=== PATIENT | male | born 1965 | race Caucasian/White ===

== ENCOUNTER 2019-11-22 03:18 | Emergency (ER) | payer MEDICAID, OTHER ==
[~2019-11-22] VITALS: Ht 182.9 cm; Wt 77.3 kg
[2019-11-22] MEDS ORDERED: loperamide 2mg capsule PO ONE (03:30)
[2019-11-22] MEDS ORDERED: ondansetron/PF 4mg/2ml inj IV ONE (03:30)
[2019-11-22] MEDS ORDERED: normal saline 1000ML IV soln IVB ONE (03:30)
[2019-11-22] MEDS ORDERED: LORazepam 2 mg/ml vial IV ONE (03:35)
[2019-11-22 04:11] LABS: BASOPHILS # (AUTO) 0.1 X10'3 (0-0.2); BASOPHILS % (AUTO) 0.5 % (0-1); EOSINOPHILS % (AUTO) 0.1 % (0-6); HEMATOCRIT 43.8 % (42.0-52.0); HEMOGLOBIN 14.4 g/dl (14.0-17.9); LYMPHOCYTES # (AUTO) 1.3 X10'3 (1.1-4.8); LYMPHOCYTES % (AUTO) 7.7 % (21-51); MEAN CORPUSCULAR HEMOGLOBIN 29.8 PG (27.0-31.0); MEAN CORPUSCULAR HGB CONC 32.8 g/dL (33.0-36.5); MEAN CORPUSCULAR VOLUME 90.8 FL (78-98); MEAN PLATELET VOLUME 9.9 FL (7.4-10.4); MONOCYTES # (AUTO) 0.8 X10'3 (0-0.9); MONOCYTES % (AUTO) 4.8 % (2-12); NEUTROPHILS # (AUTO) 14.6 X10'3 (1.8-7.7); NEUTROPHILS % (AUTO) 86.9 % (42-75); PLATELET COUNT 242 X10'3 (140-440); RED BLOOD COUNT 4.82 X10'6 (4.70-6.10); RED CELL DISTRIBUTION WIDTH 13.8 % (11.5-14.5); WHITE BLOOD COUNT 16.8 X10'3 (4.5-11.0)
[2019-11-22 04:14] LABS: ALANINE AMINOTRANSFERASE 24 U/L (12-78); ALKALINE PHOSPHATASE 78 IU/L (46-116); ANION GAP 16 (8-16); ASPARTATE AMINO TRANSFERASE 22 U/L (10-37); BILIRUBIN,TOTAL 0.6 MG/DL (0.1-1.0); BLOOD UREA NITROGEN 14 MG/DL (7-18); BUN/CREATININE RATIO 8.7 (5.4-32.0); CALCIUM 9.1 MG/DL (8.5-10.1); CHLORIDE 102 MMOL/L (99-107); CREATININE 1.61 MG/DL (0.60-1.10); GLUCOSE 128 MG/DL (70-104); SODIUM 138 MMOL/L (135-145); TOTAL CARBON DIOXIDE 20.1 MMOL/L (24-32); TOTAL PROTEIN 7.9 G/DL (6.4-8.2); eGFR 45 ML/MIN
[2019-11-22 04:19] LABS: LIPASE 201 U/L (73-393); TROPONIN I < 0.04 NG/ML (0.0-0.05)
[2019-11-22] MEDS ORDERED: proCHLORperazine 10 MG/2 ml inj IV ONE (04:35)
[2019-11-22 04:51] LABS: CLARITY,URINE CLEAR (Clear); COLOR,URINE YELLOW (Yellow); GLUCOSE, URINE NEGATIVE (Neg); KETONES,URINE 15 mg/dl (Neg); LEUKOCYTE ESTERASE ,URINE NEGATIVE (Neg); NITRITES, URINE NEGATIVE (Neg); OCCULT BLOOD,URINE TRACE-INTACT (Neg); PH,URINE 6.5 (4.8-8.0); PROTEIN,URINE NEGATIVE (Neg); UROBILINOGEN,URINE 0.2 E.U/dL (0.2-1.0)
[2019-11-22 04:52] VITALS: BP 144/103
[2019-11-22] MEDS ORDERED: ONDA8TAB6 PO (04:57)
[2019-11-22 05:04] LABS: UA COLLECTION TYPE URINAL
[2019-11-22 05:11] LABS: BACTERIA,URINE NONE SEEN /HPF (Neg); RBC,URINE 0-2 /HPF (0-2); WBC,URINE 0-4 /HPF (0-4)
[2019-11-22 05:12] LABS: HYALINE CASTS 0-3 /LPF (NEGATIVE); MUCUS STRANDS NONE SEEN /LPF (Neg); SQUAMOUS EPITHELIAL CELL,UR NONE SEEN /LPF (FEW)
[2019-11-22] MEDS ORDERED: mag hydrox/Alum hydrox/simeth 30ml oral suspension PO ONE (05:25)
[2019-11-22] MEDS ORDERED: famotidine 20mg tablet PO ONE (05:25)
== END 2019-11-22 05:48 | disposition home or self-care (01) ==
LOC: ER 03:19
DX: K52.9 Noninfective gastroenteritis and colitis, unspecified (principal); R11.2 Nausea with vomiting, unspecified; R10.84 Generalized abdominal pain
CPT/HCPCS: 36415; 71045; 80053; 81001; 83690; 84484; 85025; 93005; 96361; 96374; 96375; 99285; J0780; J2060; J2405; J7030

== ENCOUNTER 2023-01-06 18:29 | Emergency (ER) | payer MEDICAID, OTHER ==
[~2023-01-06] VITALS: Ht 180.3 cm; Wt 84.1 kg
[~2023-01-06 18:29] MED LIST: ONDA8TAB6 PO
[2023-01-06 18:35] VITALS: BP 140/85
[2023-01-06 19:46] LABS: BASOPHILS # (AUTO) 0.1 X10'3 (0-0.2); BASOPHILS % (AUTO) 0.9 % (0-1); EOSINOPHILS # (AUTO) 0.5 X10'3 (0-0.9); EOSINOPHILS % (AUTO) 5.2 % (0-6); HEMATOCRIT 36.1 % (42.0-52.0); HEMOGLOBIN 11.6 g/dl (14.0-17.9); LYMPHOCYTES # (AUTO) 2.5 X10'3 (1.1-4.8); LYMPHOCYTES % (AUTO) 26.5 % (21-51); MEAN CORPUSCULAR HEMOGLOBIN 25.8 PG (27.0-31.0); MEAN CORPUSCULAR HGB CONC 32.1 g/dL (33.0-36.5); MEAN CORPUSCULAR VOLUME 80.3 FL (78-98); MEAN PLATELET VOLUME 8.4 FL (7.4-10.4); MONOCYTES # (AUTO) 0.9 X10'3 (0-0.9); MONOCYTES % (AUTO) 9.7 % (2-12); NEUTROPHILS # (AUTO) 5.5 X10'3 (1.8-7.7); NEUTROPHILS % (AUTO) 57.7 % (42-75); PLATELET COUNT 378 X10'3 (140-440); RED CELL DISTRIBUTION WIDTH 14.5 % (11.5-14.5); WHITE BLOOD COUNT 9.5 X10'3 (4.5-11.0)
[2023-01-06 19:59] LABS: ALANINE AMINOTRANSFERASE 24 U/L (12-78); ALBUMIN 3.3 G/DL (3.4-5.0); ALBUMIN/GLOBULIN RATIO 0.7 (1.1-1.5); ALKALINE PHOSPHATASE 86 IU/L (46-116); ANION GAP 12 (8-16); ASPARTATE AMINO TRANSFERASE 15 U/L (10-37); BILIRUBIN,TOTAL 0.2 MG/DL (0.1-1.0); BLOOD UREA NITROGEN 12 MG/DL (7-18); BUN/CREATININE RATIO 8.4 (10.0-20.0); CALCIUM 8.8 MG/DL (8.5-10.1); CHLORIDE 104 MMOL/L (99-107); CREATININE 1.43 MG/DL (0.60-1.10); GLUCOSE 115 MG/DL (70-104); POTASSIUM 3.5 MMOL/L (3.5-5.1); SODIUM 141 MMOL/L (135-145); TOTAL CARBON DIOXIDE 25.1 MMOL/L (24-32); TOTAL PROTEIN 7.8 G/DL (6.4-8.2); eGFR 51 ML/MIN
[2023-01-06] MEDS ORDERED: HYDROcodone/acetaminophen 5mg/325mg tablet PO ONE (20:35)
[2023-01-06] MEDS ORDERED: sulfamethoxazole/trimethoprim DS (800/160mg) tablet PO ONE (20:35)
[2023-01-06] MEDS ORDERED: cephalexin 250mg capsule PO ONE (20:35)
[2023-01-06] MEDS ORDERED: ondansetron 4mg rapidly disintigrating tab PO ONE (20:35)
[2023-01-06] MEDS ORDERED: SULF1TAB45 PO (21:15)
[2023-01-06] MEDS ORDERED: CEPH250T PO (21:15)
[2023-01-06] MEDS ORDERED: OXYC-145 PO (21:15)
== END 2023-01-06 21:26 | disposition home or self-care (01) ==
LOC: ER 18:30
DX: L72.8 Other follicular cysts of the skin and subcutaneous tissue (principal)
CPT/HCPCS: 36415; 80053; 85025; 99284

== ENCOUNTER 2023-04-03 05:17 | Day surgery (SDC) | payer MEDICAID ==
[2023-03-28 12:29] LABS: BILIRUBIN,URINE NEGATIVE (Neg); CLARITY,URINE CLEAR (Clear); COLOR,URINE YELLOW (Yellow); GLUCOSE, URINE NEGATIVE (Neg); KETONES,URINE NEGATIVE (Neg); LEUKOCYTE ESTERASE ,URINE NEGATIVE (Neg); NITRITES, URINE NEGATIVE (Neg); OCCULT BLOOD,URINE NEGATIVE (Neg); PH,URINE 5.5 (4.8-8.0); PROTEIN,URINE NEGATIVE (Neg); UROBILINOGEN,URINE 0.2 E.U/dL (0.2-1.0)
[2023-03-28 12:41] LABS: BASOPHILS # (AUTO) 0.1 X10'3 (0-0.2); BASOPHILS % (AUTO) 0.8 % (0-1); EOSINOPHILS # (AUTO) 0.6 X10'3 (0-0.9); EOSINOPHILS % (AUTO) 3.8 % (0-6); LYMPHOCYTES # (AUTO) 1.6 X10'3 (1.1-4.8); LYMPHOCYTES % (AUTO) 9.9 % (21-51); MEAN CORPUSCULAR HEMOGLOBIN 24.2 PG (27.0-31.0); MEAN CORPUSCULAR VOLUME 78.1 FL (78-98); MEAN PLATELET VOLUME 8.9 FL (7.4-10.4); MONOCYTES # (AUTO) 1.2 X10'3 (0-0.9); MONOCYTES % (AUTO) 7.3 % (2-12); NEUTROPHILS # (AUTO) 12.7 X10'3 (1.8-7.7); NEUTROPHILS % (AUTO) 78.2 % (42-75); PRE OP HEMATOCRIT 33.3 % (42.0-52.0); PRE OP PLATELET COUNT 465 X10'3 (140-440); RED BLOOD COUNT 4.27 X10'6 (4.70-6.10); RED CELL DISTRIBUTION WIDTH 17.3 % (11.5-14.5); UA COLLECTION TYPE NON-SPECIFIED
[2023-03-28 12:43] LABS: ALBUMIN 3.1 G/DL (3.4-5.0); ALBUMIN/GLOBULIN RATIO 0.6 (1.1-1.5); ALKALINE PHOSPHATASE 85 IU/L (46-116); BLOOD UREA NITROGEN 15 MG/DL (7-18); BUN/CREATININE RATIO 10.9 (10.0-20.0); CALCIUM 9.3 MG/DL (8.5-10.1); CHLORIDE 105 MMOL/L (99-107); CREATININE 1.37 MG/DL (0.60-1.10); PRE OP ALT 22 U/L (30-65); PRE OP ANION GAP 9 (8-16); PRE OP AST 22 U/L (10-37); PRE OP BILIRUB, TOTAL 0.4 MG/DL (0.0-1.0); PRE OP GLUCOSE 112 MG/DL (70-104); PRE OP POTASSIUM 3.7 MMOL/L (3.4-5.1); PRE OP SODIUM 139 MMOL/L (135-145); TOTAL CARBON DIOXIDE 25.1 MMOL/L (24-32); eGFR 53 ML/MIN
[2023-03-28 12:59] LABS: PRE OP WHITE BLOOD COUNT 16.3 10'3 (4.8-10.8)
[2023-03-28 13:00] LABS: PRE OP HEMOGLOBIN 10.3 g/dL (14.0-17.9)
[~2023-04-03] VITALS: Ht 180.3 cm; Wt 80.0 kg
[2023-04-03] VITALS (12 sets, daily range): BP systolic 91–115; BP diastolic 58–73; PULSE 88–127; RESP 12–19; TEMP 98.6; O2SAT 93–100
[~2023-04-03 05:17] MED LIST changes: +NO HOME MEDS; -ONDA8TAB6 PO; +ringers solution, lacted 1,000 ML IV SCH
[2023-04-03] MEDS ORDERED: cefazolin 2gm/D5W 100mL 100 ML IV ONE (05:30)
[2023-04-03] MEDS ORDERED: famotidine 20mg tablet PO ONE (05:30)
[2023-04-03] MEDS ORDERED: BUPIVAcaine/PF 2.5 mg/ml (0.25%) 30ml vial ONE (06:49)
[2023-04-03] MEDS ORDERED: LIDOcaine 1% w/EPI 1:100,000 inj. MDV 50 ML VIAL ONE (06:49)
[2023-04-03] MEDS ORDERED: LIDOcaine 1% W/epiNEPHrine 1:100,000 20ml vial ONE (06:52)
[2023-04-03] MEDS ORDERED: sevoflurane 250ml liquid IH ONE (08:19)
[2023-04-03] MEDS ORDERED: midazolam 1 mg/ML 2ml injection ONE (08:20)
[2023-04-03] MEDS ORDERED: fentaNYL /PF 50mcg/ml 5ml ampule ONE (08:45)
[2023-04-03] MEDS ORDERED: ondansetron/PF 4mg/2ml inj ONE (08:46)
[2023-04-03] MEDS ORDERED: propofol inj 20 ML IV ONE (08:46)
[2023-04-03] MEDS ORDERED: dexamethasone sod phosphate 4mg/ml inj. ONE (08:46)
[2023-04-03] MEDS ORDERED: LIDOcaine 2% (20mg/ml) 5ml vial ONE (08:46)
[2023-04-03] MEDS ORDERED: rocuronium 10mg/ml inj IV ONE (08:46)
[2023-04-03] MEDS ORDERED: BUPIVAcaine/PF 2.5 mg/ml (0.25%) 30ml vial IJ ONE (09:18)
[2023-04-03] MEDS ORDERED: LIDOcaine 1% w/EPI 1:100,000 30ml vial (MDV) IJ ONE (09:23)
[2023-04-03] MEDS ORDERED: ePHEDrine 50MG/ML INJ. ONE (09:24)
[2023-04-03] MEDS ORDERED: glycopyrrolate 0.2mg/ml inj ONE (09:24)
[2023-04-03] MEDS ORDERED: neostigmine methylsulfate 1 MG/ML 10ml vial ONE (09:24)
--- NOTE | 2023-04-03 09:40 | NUR ---
Received from OR via [facility], accompanied by Anesthesiologist and report given by BATOOL Anesthesiologist. PATIENT WAKING UP, DENIES PAIN, V/S WNL, SCD ON , PIV 20G LEFT ARM, LEFT BUTTOCK DRESSING C/D/I. Addendum: 04/03/23 at 1001 by Thomsa You RN Amended: Links added.
[2023-04-03] MEDS ORDERED: oxyCODONE/APAP 10/325mg tablet PO ONE (11:15)
--- NOTE | 2023-04-03 11:30 | NUR ---
ALL DISCHARGE CRITERIA HAS BEEN MET. VSS, PAIN AT A TOLERABLE LEVEL, ABLE TO SAFELY AMBULATE AND TRANSFER SELF. IV TAKEN OUT WITHOUT ANY COMPLICATIONS. ALL DISCHARGE INSTRUCTIONS COVERED WITH PATIENT AND ALL QUESTIONS ANSWERED. PATIENT TAKEN OUT VIA WHEELCHAIR WITH ALL BELONGINGS TO PERSONAL VEHICLE WHERE RENEE (RIDE SERVICE) DROVE PATIENT HOME. Addendum: 04/03/23 at 1133 by Thomas You RN Amended: Links added.
== END 2023-04-03 11:30 | disposition home or self-care (01) ==
LOC: PAS 05:17
PROVIDERS: ATTEND Surgery
DX: C44.529 Squamous cell carcinoma of skin of other part of trunk (principal); G43.909 Migraine, unspecified, not intractable, without status migrainosus; Z87.891 Personal history of nicotine dependence; Z72.89 Other problems related to lifestyle; Z98.890 Other specified postprocedural states; Z87.442 Personal history of urinary calculi; Z79.899 Other long term (current) drug therapy; Z80.0 Family history of malignant neoplasm of digestive organs; Z83.3 Family history of diabetes mellitus
CPT/HCPCS: 11606; 80053; 81003; 82948; 85025; 93005; J0690; J1100; J2250; J2405; J2704; J2710; J3010; J3490; J7030; J7120; Z7506; Z7508; Z7512; A4618; A6446; A7000

== ENCOUNTER 2023-04-10 17:34 | Inpatient (IN) | payer MEDICAID ==
[~2023-04-10] VITALS: Ht 170.2 cm; Wt 84.1 kg
[~2023-04-10 17:34] MED LIST changes: -ringers solution, lacted 1,000 ML IV SCH
[2023-04-10] MEDS ORDERED: acetaminophen 325mg tablet PO STA (18:39)
[2023-04-10 19:50] LABS: BASOPHILS # (AUTO) 0.1 X10'3 (0-0.2); BASOPHILS % (AUTO) 0.8 % (0-1); EOSINOPHILS # (AUTO) 0.4 X10'3 (0-0.9); HEMATOCRIT 25.4 % (42.0-52.0); HEMOGLOBIN 8.3 g/dl (14.0-17.9); LYMPHOCYTES # (AUTO) 1.4 X10'3 (1.1-4.8); LYMPHOCYTES % (AUTO) 12.8 % (21-51); MEAN CORPUSCULAR HEMOGLOBIN 25.3 PG (27.0-31.0); MEAN CORPUSCULAR HGB CONC 32.7 g/dL (33.0-36.5); MEAN CORPUSCULAR VOLUME 77.2 FL (78-98); MONOCYTES % (AUTO) 9.4 % (2-12); NEUTROPHILS # (AUTO) 7.9 X10'3 (1.8-7.7); PLATELET COUNT 451 X10'3 (140-440); RED BLOOD COUNT 3.29 X10'6 (4.70-6.10); RED CELL DISTRIBUTION WIDTH 17.5 % (11.5-14.5); WHITE BLOOD COUNT 10.9 X10'3 (4.5-11.0)
[2023-04-10 20:05] LABS: ALANINE AMINOTRANSFERASE 22 U/L (12-78); ALBUMIN 2.6 G/DL (3.4-5.0); ALBUMIN/GLOBULIN RATIO 0.6 (1.1-1.5); ALKALINE PHOSPHATASE 69 IU/L (46-116); ANION GAP 9 (8-16); ASPARTATE AMINO TRANSFERASE 14 U/L (10-37); BILIRUBIN,TOTAL 0.3 MG/DL (0.1-1.0); BLOOD UREA NITROGEN 9 MG/DL (7-18); BUN/CREATININE RATIO 6.5 (10.0-20.0); CALCIUM 8.7 MG/DL (8.5-10.1); CHLORIDE 102 MMOL/L (99-107); CREATININE 1.39 MG/DL (0.60-1.10); GLUCOSE 101 MG/DL (70-104); POTASSIUM 3.7 MMOL/L (3.5-5.1); SODIUM 136 MMOL/L (135-145); TOTAL CARBON DIOXIDE 25.1 MMOL/L (24-32); TOTAL PROTEIN 6.7 G/DL (6.4-8.2); eCRCL 54 ML/MIN; eGFR 52 ML/MIN
[2023-04-10] MEDS ORDERED: ringers solution, lacted 1,000 ML IV ONE (20:55)
[2023-04-10] MEDS ORDERED: VANCOmycin 1250MG/NS 250ml Bag 250 ML IV ONE (21:02)
[2023-04-10] MEDS ORDERED: piperacillin/tazo 4.5gm/100ml 100 ML IV SCH (21:02)
[2023-04-10] MEDS ORDERED: piperacillin/tazo 4.5gm/100ml 100 ML IV ONE (21:03)
[2023-04-10 21:20] LABS: APTT 28 SECONDS (22-32); PROTHROMBIN TIME 10.9 SECONDS (9.0-12.0)
[2023-04-10 21:34] LABS: BILIRUBIN,URINE NEGATIVE (Neg); CLARITY,URINE CLEAR (Clear); COLOR,URINE YELLOW (Yellow); GLUCOSE, URINE NEGATIVE (Neg); KETONES,URINE 15 mg/dl (Neg); LEUKOCYTE ESTERASE ,URINE NEGATIVE (Neg); NITRITES, URINE NEGATIVE (Neg); OCCULT BLOOD,URINE NEGATIVE (Neg); PH,URINE 6.5 (4.8-8.0); PROTEIN,URINE NEGATIVE (Neg); UROBILINOGEN,URINE 0.2 E.U/dL (0.2-1.0)
[2023-04-10 21:43] LABS: UA COLLECTION TYPE CLN CATCH MIDSTREAM
[2023-04-10] MEDS ORDERED: mag hydrox/Alum hydrox/simeth 30ml oral suspension PO PRN (22:10)
[2023-04-10] MEDS ORDERED: ondansetron/PF 4mg/2ml inj IV PRN (22:10)
[2023-04-10] MEDS ORDERED: magnesium hydroxide 30ml (MOM) UD suspension PO PRN (22:10)
[2023-04-10] MEDS ORDERED: potassium Cl 40MEQ/1/2NS 520ml 520 ML IV PRN (22:10)
[2023-04-10] MEDS ORDERED: HYDROcodone/acetaminophen 5mg/325mg tablet PO PRN (22:10)
[2023-04-10] MEDS ORDERED: morphine 2 MG/ML inj. syringe IV PRN (22:10)
[2023-04-10] MEDS ORDERED: potassium Cl 20 mEq SR tablet PO PRN ×2 (22:10)
[2023-04-10] MEDS ORDERED: acetaminophen 325mg tablet PO PRN (22:10)
[2023-04-10] MEDS ORDERED: magnesium Cl slow-release 64mg tablet PO PRN (22:10)
[2023-04-10] MEDS ORDERED: magnesium 2GM in 50ml NS 50 ML IV PRN (22:10)
[2023-04-10] MEDS ORDERED: magnesium 4gm in 100ml NS 100 ML IV PRN (22:10)
[2023-04-11] VITALS (7 sets, daily range): BP systolic 101–108; BP diastolic 65–76; PULSE 71–92; RESP 15–16; TEMP 97.8–98.6; O2SAT 96–100
[2023-04-11] MEDS: HYDROcodone/acetaminophen 10/325mg tab PO PRN ×4 (00:08→18:48)
[2023-04-11 06:14] LABS: BASOPHILS # (AUTO) 0.1 X10'3 (0-0.2); BASOPHILS % (AUTO) 0.8 % (0-1); EOSINOPHILS # (AUTO) 0.5 X10'3 (0-0.9); EOSINOPHILS % (AUTO) 5.2 % (0-6); HEMATOCRIT 26.1 % (42.0-52.0); HEMOGLOBIN 8.3 g/dl (14.0-17.9); LYMPHOCYTES # (AUTO) 2.6 X10'3 (1.1-4.8); LYMPHOCYTES % (AUTO) 27.8 % (21-51); MEAN CORPUSCULAR HEMOGLOBIN 24.8 PG (27.0-31.0); MEAN CORPUSCULAR HGB CONC 31.7 g/dL (33.0-36.5); MEAN CORPUSCULAR VOLUME 78.1 FL (78-98); MEAN PLATELET VOLUME 8.1 FL (7.4-10.4); MONOCYTES # (AUTO) 1.2 X10'3 (0-0.9); MONOCYTES % (AUTO) 12.6 % (2-12); NEUTROPHILS % (AUTO) 53.6 % (42-75); PLATELET COUNT 509 X10'3 (140-440); RED BLOOD COUNT 3.34 X10'6 (4.70-6.10); RED CELL DISTRIBUTION WIDTH 17.5 % (11.5-14.5); WHITE BLOOD COUNT 9.4 X10'3 (4.5-11.0)
--- NOTE | 2023-04-11 06:14 | NUR ---
Patient in room ORTHO 4020. I have received report from Hannah DELACRUZ and had the opportunity to ask questions and assume patient care.Called wound care both sets of blood cultures have been drawn,Patient lying on right side awake Williamson just given by NOC shift
[2023-04-11 06:16] LABS: ALANINE AMINOTRANSFERASE 22 U/L (12-78); ALBUMIN 2.4 G/DL (3.4-5.0); ALBUMIN/GLOBULIN RATIO 0.6 (1.1-1.5); ALKALINE PHOSPHATASE 69 IU/L (46-116); ANION GAP 4 (8-16); ASPARTATE AMINO TRANSFERASE 18 U/L (10-37); BILIRUBIN,TOTAL 0.4 MG/DL (0.1-1.0); BLOOD UREA NITROGEN 7 MG/DL (7-18); BUN/CREATININE RATIO 4.7 (10.0-20.0); CALCIUM 8.7 MG/DL (8.5-10.1); CHLORIDE 106 MMOL/L (99-107); CREATININE 1.48 MG/DL (0.60-1.10); GLUCOSE 106 MG/DL (70-104); MAGNESIUM 2.2 MG/DL (1.5-2.4); POTASSIUM 4.3 MMOL/L (3.5-5.1); SODIUM 138 MMOL/L (135-145); TOTAL CARBON DIOXIDE 28.3 MMOL/L (24-32); TOTAL PROTEIN 6.5 G/DL (6.4-8.2); eCRCL 50 ML/MIN; eGFR 49 ML/MIN
--- NOTE | 2023-04-11 06:34 | NUR ---
Problems reprioritized. Patient report given, questions answered & plan of care reviewed with JAYME Chaparro.
[2023-04-11] MEDS: K and/or MAG REPLACEMENT MC SCH ×2 (08:00→20:00)
[2023-04-11] MEDS: ceFAZolin/D5W- 1GM premix 50 ML IV SCH ×2 (08:54→16:16)
[2023-04-11] MEDS: docusate sod 100mg capsule PO SCH ×2 (08:56→20:58)
[2023-04-11] MEDS: heparin, porcine 5000 units/ml vial SQ SCH ×2 (08:56→20:58)
[2023-04-11] MEDS ORDERED: vancomycin/NS 1 GM ADD-VANTAGE 250 ML IV SCH (09:00)
--- NOTE | 2023-04-11 10:42 | NUR ---
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 Wound care has been consulted, pending [facility] note. Will continue to monitor closely. Addendum: 04/11/23 at [address] Amended: Links added.
[2023-04-11] MEDS: vancomycin/NS 1 GM ADD-VANTAGE 250 ML IV SCH (13:39)
--- NOTE | 2023-04-11 14:05 | NUR ---
WOUND VAC EDUCATION PROVIDED BY WOUND CARE 1. Patient instructed to call the Wound Center or their Home Health Agency immediately if: * They notice a change in the color or amount of the fluid in the canister. * Their wound looks more red than usual or has a foul smell. * The skin around their wound looks reddened or irritated. * The dressing feels loose or appears to be loose. * They experience any increase or changes in their pain. * The alarm will not turn off. 2. Patient instructed that they should not be disconnected from suction for more than 2 hours at a time. * If they are not able to get the suction back on, they need to remove the dressing and take all of the foam out of the wound. * Then moisten sterile gauze with normal saline and place on/in the wound. * Change the dressing once a day until arrangements have been made to replace the wound vac dressing. 3. Patient instructed to turn the wound vac machine OFF and call 911 or go to the ED immediately if their canister fills rapidly with blood. 4. If any of these occur while in the hospital tell a nurse immediately. Addendum: 04/11/23 at 1405 by Apryl Gee LVN Amended: Links added.
--- NOTE | 2023-04-11 16:33 | NUR ---
PATIENT CHOOSING TO HOLD BM FOR CONCERN OF CONTAMINATING SACRAL WOUND. EDUCATED PATIENT ON THE NEED TO HAVE BM AND WAYS TO PREVENT WOUND CONTAMINATION. Addendum: 04/11/23 at 1635 by Selene LORA Amended: Links added.
--- NOTE | 2023-04-11 18:20 | NUR ---
Problems reprioritized. Patient report given, questions answered & plan of care reviewed with Hannah DELACRUZ and she is aware when she does wound care tonight to get wound cultures.
--- NOTE | 2023-04-11 21:28 | NUR ---
Problems reprioritized. Patient report given, questions answered & plan of care reviewed with JAYME Early.
--- NOTE | 2023-04-11 21:30 | NUR ---
I have reviewed and agree with THE assessment performed and documented by JAYME PACK UNLESS OTHERWISE NOTATED IN THE CHART.
[2023-04-12] MEDS: ceFAZolin/D5W- 1GM premix 50 ML IV SCH ×3 (00:30→17:28)
[2023-04-12] MEDS: vancomycin/NS 1 GM ADD-VANTAGE 250 ML IV SCH (01:05)
[2023-04-12] MEDS: HYDROcodone/acetaminophen 10/325mg tab PO PRN ×3 (01:08→14:24)
[2023-04-12 01:10] VITALS: BP 95/47; PULSE 69; RESP 16; O2SAT 98
[2023-04-12 06:00] VITALS: BP 96/63; PULSE 64; RESP 13; TEMP 98.1; O2SAT 98
--- NOTE | 2023-04-12 06:42 | NUR ---
Problems reprioritized. Patient report given, questions answered & plan of care reviewed with JAYME SALAZAR.
[2023-04-12 07:04] LABS: HEMATOCRIT 27.2 % (42.0-52.0); HEMOGLOBIN 8.3 g/dl (14.0-17.9); MEAN CORPUSCULAR HGB CONC 30.6 g/dL (33.0-36.5); MEAN CORPUSCULAR VOLUME 78.5 FL (78-98); MEAN PLATELET VOLUME 8.4 FL (7.4-10.4); PLATELET COUNT 493 X10'3 (140-440); RED BLOOD COUNT 3.47 X10'6 (4.70-6.10); RED CELL DISTRIBUTION WIDTH 17.5 % (11.5-14.5); WHITE BLOOD COUNT 6.9 X10'3 (4.5-11.0)
[2023-04-12 07:17] LABS: ALANINE AMINOTRANSFERASE 19 U/L (12-78); ALBUMIN 2.3 G/DL (3.4-5.0); ALBUMIN/GLOBULIN RATIO 0.6 (1.1-1.5); ALKALINE PHOSPHATASE 64 IU/L (46-116); ANION GAP 4 (8-16); ASPARTATE AMINO TRANSFERASE 20 U/L (10-37); BILIRUBIN,TOTAL 0.2 MG/DL (0.1-1.0); BLOOD UREA NITROGEN 6 MG/DL (7-18); BUN/CREATININE RATIO 4.4 (10.0-20.0); CALCIUM 8.6 MG/DL (8.5-10.1); CHLORIDE 107 MMOL/L (99-107); CREATININE 1.35 MG/DL (0.60-1.10); GLUCOSE 91 MG/DL (70-104); MAGNESIUM 2.3 MG/DL (1.5-2.4); POTASSIUM 3.8 MMOL/L (3.5-5.1); SODIUM 137 MMOL/L (135-145); TOTAL CARBON DIOXIDE 25.6 MMOL/L (24-32); TOTAL PROTEIN 6.3 G/DL (6.4-8.2); eCRCL 55 ML/MIN; eGFR 54 ML/MIN
[2023-04-12 07:20] LABS: % IRON SATURATION 8 % (11-46); IRON 14 UG/DL (53-167); MICROCYTOSIS 1+; PLATELET ESTIMATE INCREASED; TOTAL CELLS COUNTED 100; TOTAL IRON BINDING CAPACITY 168 UG/DL (259-388)
[2023-04-12 07:21] LABS: ANISOCYTOSIS 1+; HYPOCHROMASIA 1+; POIKILOCYTOSIS FEW; POLYCHROMASIA 1+; ROULEAUX 1+
[2023-04-12] MEDS: K and/or MAG REPLACEMENT MC SCH ×2 (08:00→20:17)
[2023-04-12 10:00] VITALS: BP 95/56; PULSE 83; RESP 14; TEMP 98.1; O2SAT 96; O2SAT 98
[2023-04-12] MEDS: docusate sod 100mg capsule PO SCH ×2 (10:00→20:18)
[2023-04-12] MEDS: heparin, porcine 5000 units/ml vial SQ SCH ×2 (10:02→20:18)
--- NOTE | 2023-04-12 10:32 | NUR ---
Initial: Pt admit for large wound on buttocks. Pt seen by wound care, per note pt with a full thickness wound to sacrum. Per physician note pt pending wound VAC placement and pt with sepsis. Pt currently on a heart healthy diet and eating well, documented with 100% PO intake of all meals meeting estimated nutrient needs. Pt likely to discharge after wound VAC placement per physician note. If pt does not discharge pt wound benefit from Michel ONS BID to assist with wound healing. LBM 04/10 per EMR. Pt receiving routine bowel care and with PRN bowel care available. Will continue to follow and make recommendations as appropriate. Recommendations: 1) Liberalize to regular diet given no cardiac PMH per EMR 2) Michel ONS BID to assist with wound healing if pt does not discharge 3) Routine bowel care 4) Scaled weight this admit; subsequent weekly scaled weights Addendum: 04/12/23 at [address] Amended: Links added.
[2023-04-12] MEDS ORDERED: VANCOMYCIN LEVEL IV ONE (12:30)
[2023-04-12 13:01] LABS: VANCOMYCIN,TROUGH 21.7 ug/mL (10.0-20.0)
[2023-04-12] MEDS ORDERED: HYDROmorphone inj. 0.5 MG/0.5 ML DISP.SYRIN IV PRN (14:45)
[2023-04-12] MEDS ORDERED: HYDROmorphone 1 mg/ml syringe IV PRN (14:45)
[2023-04-12] MEDS ORDERED: normal saline 500ml IV soln 500 ML IV ONE (15:15)
[2023-04-12] MEDS: VANCOMYCIN 750MG IV in NS 250 ML IV SCH (15:22)
--- NOTE | 2023-04-12 15:24 | NUR ---
WOUND VAC EDUCATION PROVIDED BY WOUND CARE 1. Patient instructed to call the Wound Center or their Home Health Agency immediately if: * They notice a change in the color or amount of the fluid in the canister. * Their wound looks more red than usual or has a foul smell. * The skin around their wound looks reddened or irritated. * The dressing feels loose or appears to be loose. * They experience any increase or changes in their pain. * The alarm will not turn off. 2. Patient instructed that they should not be disconnected from suction for more than 2 hours at a time. * If they are not able to get the suction back on, they need to remove the dressing and take all of the foam out of the wound. * Then moisten sterile gauze with normal saline and place on/in the wound. * Change the dressing once a day until arrangements have been made to replace the wound vac dressing. 3. Patient instructed to turn the wound vac machine OFF and call 911 or go to the ED immediately if their canister fills rapidly with blood. 4. If any of these occur while in the hospital tell a nurse immediately. Addendum: 04/12/23 at 1525 by Apryl Gee LVN Amended: Links added.
[2023-04-12 18:00] VITALS: BP 92/54; PULSE 70; RESP 16; TEMP 97.6; O2SAT 96
--- NOTE | 2023-04-12 18:18 | NUR ---
Problems reprioritized. Patient report given, questions answered & plan of care reviewed with Prudence RN.
--- NOTE | 2023-04-12 18:56 | NUR ---
Patient in room ORTHO 4020. I have received report from MARTIN DELACRUZ and had the opportunity to ask questions and assume patient care.
[2023-04-12 20:00] VITALS: RESP 16; O2SAT 96
[2023-04-12] MEDS: oxyCODONE IR 5mg (immed. release) tablet PO PRN (20:18)
[2023-04-12 22:00] VITALS: BP 94/57; PULSE 88; RESP 17; TEMP 97.9; O2SAT 98
[2023-04-13] VITALS (7 sets, daily range): BP systolic 92–115; BP diastolic 54–66; PULSE 79–92; RESP 15–18; TEMP 97.9–98.6; O2SAT 97–100
[2023-04-13] MEDS: ceFAZolin/D5W- 1GM premix 50 ML IV SCH ×3 (00:07→16:09)
[2023-04-13] MEDS: oxyCODONE IR 5mg (immed. release) tablet PO PRN ×3 (00:30→21:27)
[2023-04-13] MEDS: VANCOMYCIN 750MG IV in NS 250 ML IV SCH ×2 (02:11→14:13)
[2023-04-13 06:28] LABS: BASOPHILS % (AUTO) 0.3 % (0-1); EOSINOPHILS # (AUTO) 0.7 X10'3 (0-0.9); EOSINOPHILS % (AUTO) 9.2 % (0-6); HEMATOCRIT 26.9 % (42.0-52.0); HEMOGLOBIN 8.5 g/dl (14.0-17.9); LYMPHOCYTES # (AUTO) 3.9 X10'3 (1.1-4.8); LYMPHOCYTES % (AUTO) 48.7 % (21-51); MEAN CORPUSCULAR HEMOGLOBIN 24.7 PG (27.0-31.0); MEAN CORPUSCULAR HGB CONC 31.7 g/dL (33.0-36.5); MEAN PLATELET VOLUME 8.6 FL (7.4-10.4); MONOCYTES # (AUTO) 0.6 X10'3 (0-0.9); MONOCYTES % (AUTO) 7.6 % (2-12); NEUTROPHILS # (AUTO) 2.7 X10'3 (1.8-7.7); NEUTROPHILS % (AUTO) 34.2 % (42-75); PLATELET COUNT 527 X10'3 (140-440); RED BLOOD COUNT 3.44 X10'6 (4.70-6.10); RED CELL DISTRIBUTION WIDTH 17.8 % (11.5-14.5); WHITE BLOOD COUNT 7.9 X10'3 (4.5-11.0)
[2023-04-13 06:46] LABS: ALANINE AMINOTRANSFERASE 24 U/L (12-78); ALBUMIN 2.5 G/DL (3.4-5.0); ALBUMIN/GLOBULIN RATIO 0.6 (1.1-1.5); ALKALINE PHOSPHATASE 61 IU/L (46-116); ANION GAP 7 (8-16); ASPARTATE AMINO TRANSFERASE 22 U/L (10-37); BILIRUBIN,TOTAL 0.2 MG/DL (0.1-1.0); BLOOD UREA NITROGEN 7 MG/DL (7-18); CALCIUM 8.8 MG/DL (8.5-10.1); CHLORIDE 106 MMOL/L (99-107); CREATININE 1.39 MG/DL (0.60-1.10); GLUCOSE 98 MG/DL (70-104); MAGNESIUM 2.4 MG/DL (1.5-2.4); SODIUM 140 MMOL/L (135-145); TOTAL CARBON DIOXIDE 26.6 MMOL/L (24-32); TOTAL PROTEIN 6.7 G/DL (6.4-8.2); eCRCL 54 ML/MIN; eGFR 52 ML/MIN
--- NOTE | 2023-04-13 06:57 | NUR ---
Patient in room ORTHO 4020. I have received report from Jaimee DELACRUZ and had the opportunity to ask questions and assume patient care.
[2023-04-13] MEDS: docusate sod 100mg capsule PO SCH ×2 (07:40→19:14)
[2023-04-13] MEDS: heparin, porcine 5000 units/ml vial SQ SCH ×2 (07:42→19:14)
[2023-04-13] MEDS: K and/or MAG REPLACEMENT MC SCH ×2 (08:00→20:00)
--- NOTE | 2023-04-13 12:05 | NUR ---
F/u: Per EMR pt s/p wound VAC placement. Pt continues eating well, documented with 100% PO intake on heart healthy diet. Recommend a Michel smoothie BID to assist with wound healing, to be sent pending physician approval in EMR. Will continue to follow and monitor need for further nutrition intervention. Addendum: 04/13/23 at [address] Amended: Links added.
[2023-04-13] MEDS: JUVEN Smoothie Arginine/Glut./Ca2+Bmb (Juven 19.3pkt) 240ml cup PO SCH (17:30)
--- NOTE | 2023-04-13 18:27 | NUR ---
Pt in room 4020B, report given to Jaimee DELACRUZ.
--- NOTE | 2023-04-13 19:00 | NUR ---
Patient in room ORTHO 4020. I have received report from MARTIN DELACRUZ and had the opportunity to ask questions and assume patient care.
[2023-04-13] MEDS: FERROUS SULFATE 142 MG TABLET.ER (45mg elemental) PO SCH (21:26)
[2023-04-14] MEDS ORDERED: VANCOMYCIN LEVEL IV ONE (01:30)
[2023-04-14] MEDS: ceFAZolin/D5W- 1GM premix 50 ML IV SCH (01:43)
[2023-04-14] MEDS: oxyCODONE IR 5mg (immed. release) tablet PO PRN ×4 (02:08→21:25)
[2023-04-14 02:31] LABS: BASOPHILS # (AUTO) 0.1 X10'3 (0-0.2); BASOPHILS % (AUTO) 1.1 % (0-1); EOSINOPHILS # (AUTO) 0.5 X10'3 (0-0.9); EOSINOPHILS % (AUTO) 5.2 % (0-6); HEMATOCRIT 24.3 % (42.0-52.0); HEMOGLOBIN 7.8 g/dl (14.0-17.9); LYMPHOCYTES # (AUTO) 3.2 X10'3 (1.1-4.8); LYMPHOCYTES % (AUTO) 34.5 % (21-51); MEAN CORPUSCULAR HEMOGLOBIN 24.8 PG (27.0-31.0); MEAN CORPUSCULAR HGB CONC 32.1 g/dL (33.0-36.5); MEAN CORPUSCULAR VOLUME 77.4 FL (78-98); MEAN PLATELET VOLUME 7.9 FL (7.4-10.4); MONOCYTES # (AUTO) 0.7 X10'3 (0-0.9); MONOCYTES % (AUTO) 7.1 % (2-12); NEUTROPHILS # (AUTO) 4.8 X10'3 (1.8-7.7); NEUTROPHILS % (AUTO) 52.1 % (42-75); PLATELET COUNT 503 X10'3 (140-440); RED BLOOD COUNT 3.14 X10'6 (4.70-6.10); RED CELL DISTRIBUTION WIDTH 17.3 % (11.5-14.5); WHITE BLOOD COUNT 9.2 X10'3 (4.5-11.0)
[2023-04-14 02:35] LABS: ALANINE AMINOTRANSFERASE 42 U/L (12-78); ALBUMIN 2.7 G/DL (3.4-5.0); ALBUMIN/GLOBULIN RATIO 0.6 (1.1-1.5); ALKALINE PHOSPHATASE 65 IU/L (46-116); ANION GAP 4 (8-16); ASPARTATE AMINO TRANSFERASE 39 U/L (10-37); BILIRUBIN,TOTAL 0.2 MG/DL (0.1-1.0); BLOOD UREA NITROGEN 6 MG/DL (7-18); BUN/CREATININE RATIO 4.5 (10.0-20.0); CALCIUM 8.5 MG/DL (8.5-10.1); CHLORIDE 108 MMOL/L (99-107); CREATININE 1.33 MG/DL (0.60-1.10); GLUCOSE 98 MG/DL (70-104); MAGNESIUM 2.6 MG/DL (1.5-2.4); POTASSIUM 3.7 MMOL/L (3.5-5.1); SODIUM 141 MMOL/L (135-145); TOTAL CARBON DIOXIDE 28.6 MMOL/L (24-32); eCRCL 56 ML/MIN; eGFR 55 ML/MIN
[2023-04-14] MEDS: VANCOMYCIN 750MG IV in NS 250 ML IV SCH (02:35)
[2023-04-14 06:00] VITALS: BP 98/60; PULSE 77; RESP 18; TEMP 97.9; O2SAT 97
--- NOTE | 2023-04-14 06:36 | NUR ---
Problems reprioritized. Patient report given, questions answered & plan of care reviewed with MARTIN DELACRUZ.
--- NOTE | 2023-04-14 06:45 | NUR ---
Patient in room ORTHO 4020. I have received report from Jaimee DELACRUZ and had the opportunity to ask questions and assume patient care.
[2023-04-14] MEDS: JUVEN Smoothie Arginine/Glut./Ca2+Bmb (Juven 19.3pkt) 240ml cup PO SCH ×2 (07:30→17:30)
[2023-04-14] MEDS: K and/or MAG REPLACEMENT MC SCH ×2 (08:00→20:00)
[2023-04-14] MEDS: docusate sod 100mg capsule PO SCH ×2 (08:49→21:26)
[2023-04-14] MEDS: ascorbic acid 500mg tablet PO SCH ×2 (08:49→18:00)
[2023-04-14] MEDS: FERROUS SULFATE 142 MG TABLET.ER (45mg elemental) PO SCH ×2 (08:49→21:25)
[2023-04-14] MEDS: heparin, porcine 5000 units/ml vial SQ SCH ×2 (08:50→21:28)
[2023-04-14 10:00] VITALS: BP 111/59; PULSE 94; RESP 16; TEMP 98.5; O2SAT 99
[2023-04-14 13:47] VITALS: RESP 16
[2023-04-14 15:36] LABS: HEMATOCRIT 26.9 % (42.0-52.0); HEMOGLOBIN 8.5 g/dl (14.0-17.9); MEAN CORPUSCULAR HEMOGLOBIN 24.6 PG (27.0-31.0); MEAN CORPUSCULAR HGB CONC 31.8 g/dL (33.0-36.5); MEAN CORPUSCULAR VOLUME 77.5 FL (78-98); MEAN PLATELET VOLUME 7.6 FL (7.4-10.4); PLATELET COUNT 554 X10'3 (140-440); RED BLOOD COUNT 3.47 X10'6 (4.70-6.10); RED CELL DISTRIBUTION WIDTH 17.8 % (11.5-14.5); WHITE BLOOD COUNT 7.4 X10'3 (4.5-11.0)
[2023-04-14] MEDS: metroNIDAZOLE 500mg tablet PO SCH (15:42)
[2023-04-14] MEDS ORDERED: CIPR-202 PO (16:07)
[2023-04-14] MEDS ORDERED: METR-159 PO (16:07)
[2023-04-14] MEDS ORDERED: OXYC-149 PO (16:07)
[2023-04-14 18:00] VITALS: BP 121/85; PULSE 89; RESP 16; TEMP 98.6; O2SAT 99
--- NOTE | 2023-04-14 18:41 | NUR ---
Problems reprioritized. Patient report given, questions answered & plan of care reviewed with Alana DELACRUZ and Gilberto MALHOTRA.
[2023-04-14 20:00] VITALS: RESP 18; O2SAT 99
[2023-04-14] MEDS: ciprofloxacin 250mg tablet PO SCH (21:23)
[2023-04-14 22:00] VITALS: BP 106/70; PULSE 67; RESP 15; TEMP 98.5; O2SAT 100
[2023-04-15] MEDS: metroNIDAZOLE 500mg tablet PO SCH ×3 (00:28→15:41)
--- NOTE | 2023-04-15 05:38 | NUR ---
agree with assessments and charting for MARYA Macias
--- NOTE | 2023-04-15 05:51 | NUR ---
patient refused to have labs drawn this am "my veins are just too tired". explained pros and cons of getting blood work this am. pt continued to decline.
--- NOTE | 2023-04-15 06:30 | NUR ---
Problems reprioritized. Patient report given, questions answered & plan of care reviewed with Gabrielle.
[2023-04-15 06:44] VITALS: BP 122/83; PULSE 90; RESP 16; TEMP 98; O2SAT 98
--- NOTE | 2023-04-15 06:45 | NUR ---
Patient in room ORTHO 4020. I have received report from Alana DELACRUZ and Gilberto MALHOTRA and had the opportunity to ask questions and assume patient care.
[2023-04-15] MEDS: JUVEN Smoothie Arginine/Glut./Ca2+Bmb (Juven 19.3pkt) 240ml cup PO SCH ×2 (07:30→17:30)
[2023-04-15 07:45] VITALS: RESP 16
[2023-04-15] MEDS: K and/or MAG REPLACEMENT MC SCH ×2 (08:00→20:00)
[2023-04-15] MEDS: FERROUS SULFATE 142 MG TABLET.ER (45mg elemental) PO SCH ×2 (08:02→20:28)
[2023-04-15] MEDS: heparin, porcine 5000 units/ml vial SQ SCH ×2 (08:03→20:29)
[2023-04-15] MEDS: docusate sod 100mg capsule PO SCH ×2 (08:03→20:29)
[2023-04-15] MEDS: ascorbic acid 500mg tablet PO SCH ×2 (08:03→17:43)
[2023-04-15] MEDS: ciprofloxacin 250mg tablet PO SCH ×2 (08:03→20:29)
[2023-04-15] MEDS: oxyCODONE IR 5mg (immed. release) tablet PO PRN ×3 (09:52→20:28)
--- NOTE | 2023-04-15 10:49 | NUR ---
PAGER ID: [phone] MESSAGE: Krysta Garza [phone] Re: Clarice [id number] wound care doing wound vac change very painful, Gave oxy IR 5 less than 1 hour ago , BP 124/70 HR 83 can we give a little something IV
[2023-04-15] MEDS ORDERED: HYDROmorphone 1 mg/ml syringe IV ONE (10:55)
[2023-04-15 11:00] VITALS: BP 124/70; PULSE 83; RESP 18
--- NOTE | 2023-04-15 11:14 | NUR ---
Patient still refusing labs at this time
--- NOTE | 2023-04-15 13:40 | NUR ---
WOUND VAC EDUCATION PROVIDED BY WOUND CARE 1. Patient instructed to call the Wound Center or their Home Health Agency immediately if: * They notice a change in the color or amount of the fluid in the canister. * Their wound looks more red than usual or has a foul smell. * The skin around their wound looks reddened or irritated. * The dressing feels loose or appears to be loose. * They experience any increase or changes in their pain. * The alarm will not turn off. 2. Patient instructed that they should not be disconnected from suction for more than 2 hours at a time. * If they are not able to get the suction back on, they need to remove the dressing and take all of the foam out of the wound. * Then moisten sterile gauze with normal saline and place on/in the wound. * Change the dressing once a day until arrangements have been made to replace the wound vac dressing. 3. Patient instructed to turn the wound vac machine OFF and call 911 or go to the ED immediately if their canister fills rapidly with blood. 4. If any of these occur while in the hospital tell a nurse immediately. Addendum: 04/15/23 at 1341 by Apryl Gee LVN Amended: Links added.
--- NOTE | 2023-04-15 16:49 | NUR ---
PAGER ID: [phone] MESSAGE: Krysta Garza [phone] Re: Clarice [id number] wound vac not authorized yet will probably happen tomorrow.
[2023-04-15 18:00] VITALS: BP 129/88; PULSE 97; RESP 18; TEMP 98.5; O2SAT 100
--- NOTE | 2023-04-15 18:22 | NUR ---
Problems reprioritized. Patient report given, questions answered & plan of care reviewed with Hannah DELACRUZ.
[2023-04-15 20:00] VITALS: RESP 18; O2SAT 100
[2023-04-15 22:00] VITALS: BP 135/72; PULSE 82; RESP 16; TEMP 98; O2SAT 99
[2023-04-16] VITALS (8 sets, daily range): BP systolic 103–128; BP diastolic 65–76; PULSE 70–98; RESP 15–20; TEMP 97.3–98.9; O2SAT 97–100
[2023-04-16] MEDS: metroNIDAZOLE 500mg tablet PO SCH ×3 (00:37→16:15)
--- NOTE | 2023-04-16 06:17 | NUR ---
Problems reprioritized. Patient report given, questions answered & plan of care reviewed with JAYME Ramirez.
[2023-04-16] MEDS: JUVEN Smoothie Arginine/Glut./Ca2+Bmb (Juven 19.3pkt) 240ml cup PO SCH ×2 (07:30→17:30)
[2023-04-16] MEDS: K and/or MAG REPLACEMENT MC SCH ×2 (08:00→20:00)
[2023-04-16] MEDS: ascorbic acid 500mg tablet PO SCH ×2 (08:13→16:20)
[2023-04-16] MEDS: ciprofloxacin 250mg tablet PO SCH ×2 (08:13→20:58)
[2023-04-16] MEDS: FERROUS SULFATE 142 MG TABLET.ER (45mg elemental) PO SCH ×2 (08:13→20:58)
[2023-04-16] MEDS: docusate sod 100mg capsule PO SCH ×2 (08:14→20:58)
[2023-04-16] MEDS: heparin, porcine 5000 units/ml vial SQ SCH ×2 (08:32→21:01)
[2023-04-16] MEDS: oxyCODONE IR 5mg (immed. release) tablet PO PRN ×2 (16:22→16:58)
--- NOTE | 2023-04-16 18:00 | NUR ---
I have reviewed and agree with interventions, assessments, and documentation by Ashley Barger LVN.
--- NOTE | 2023-04-16 18:15 | NUR ---
Patient in room ORTHO 4020. I have received report from MARYA Ramirez and had the opportunity to ask questions and assume patient care. Patient laying in hospital bed,just finished dinner. Seems depressed that he did not go home today, wound vac approval still pending. I will continue to monitor.
--- NOTE | 2023-04-16 21:21 | NUR ---
Student Medication Administration: For this medication-pass time frame, all medication were reviewed, dispensed, administered and documented per hospital policy by Lorena BARAJAS [facility].
--- NOTE | 2023-04-16 21:26 | NUR ---
Student documentation: I have reviewed interventions, assessments performed and documented by Lorena BARAJAS [facility].
[2023-04-17] MEDS: metroNIDAZOLE 500mg tablet PO SCH ×2 (00:03→08:51)
--- NOTE | 2023-04-17 06:08 | NUR ---
Problems reprioritized. Patient report given, questions answered & plan of care reviewed with JAYME Perez.
[2023-04-17] MEDS: JUVEN Smoothie Arginine/Glut./Ca2+Bmb (Juven 19.3pkt) 240ml cup PO SCH (07:30)
[2023-04-17 08:00] VITALS: RESP 18; O2SAT 97
[2023-04-17] MEDS: docusate sod 100mg capsule PO SCH (08:00)
[2023-04-17] MEDS: K and/or MAG REPLACEMENT MC SCH (08:00)
[2023-04-17] MEDS: FERROUS SULFATE 142 MG TABLET.ER (45mg elemental) PO SCH (08:50)
[2023-04-17] MEDS: ciprofloxacin 250mg tablet PO SCH (08:50)
[2023-04-17] MEDS: heparin, porcine 5000 units/ml vial SQ SCH (08:51)
[2023-04-17] MEDS: ascorbic acid 500mg tablet PO SCH (08:51)
[2023-04-17] MEDS: oxyCODONE IR 5mg (immed. release) tablet PO PRN (09:17)
[2023-04-17 09:46] VITALS: BP 95/67; PULSE 81; RESP 18; TEMP 98.3; O2SAT 97
--- NOTE | 2023-04-17 15:36 | NUR ---
WOUND VAC EDUCATION PROVIDED BY WOUND CARE 1. Patient instructed to call the Wound Center or their Home Health Agency immediately if: * They notice a change in the color or amount of the fluid in the canister. * Their wound looks more red than usual or has a foul smell. * The skin around their wound looks reddened or irritated. * The dressing feels loose or appears to be loose. * They experience any increase or changes in their pain. * The alarm will not turn off. 2. Patient instructed that they should not be disconnected from suction for more than 2 hours at a time. * If they are not able to get the suction back on, they need to remove the dressing and take all of the foam out of the wound. * Then moisten sterile gauze with normal saline and place on/in the wound. * Change the dressing once a day until arrangements have been made to replace the wound vac dressing. 3. Patient instructed to turn the wound vac machine OFF and call 911 or go to the ED immediately if their canister fills rapidly with blood. 4. If any of these occur while in the hospital tell a nurse immediately. Addendum: 04/17/23 at 1536 by Heide Herman RN Amended: Links added.
== END 2023-04-17 12:00 | disposition home health service (06) | DRG 721 ==
LOC: ER 17:35 → ED HOLD 22:08 → EDBEDREQ 23:17 → ORTHO 4S 23:46
PROVIDERS: ADMIT Internal Medicine; ATTEND Family Medicine
PROC: 2W15X6Z Compression of Back using Pressure Dressing (ICD-10-PCS; principal; 2023-04-12)
DX: T81.41XA Infection following a procedure, superficial incisional surgical site, initial encounter (principal); N17.0 Acute kidney failure with tubular necrosis; A41.9 Sepsis, unspecified organism; C76.3 Malignant neoplasm of pelvis; D50.9 Iron deficiency anemia, unspecified; Y83.8 Other surgical procedures as the cause of abnormal reaction of the patient, or of later complication, without mention of misadventure at the time of the procedure; Y92.89 Other specified places as the place of occurrence of the external cause
CPT/HCPCS: 36415; 71045; 80053; 80202; 81003; 82728; 83540; 83550; 83605; 83735; 84145; 84466; 84484; 85007; 85025; 85027; 85610; 85730; 86885; 86900; 86901; 87040; 87070; 87077; 87081; 87186; 93005; 96374; 99285; A4649; A6154; A6223; A6253; A6449; G0378; J0690; J1170; J1644; J2270; J2405; J2543; J3370; J7030; J7040; J7050; J7120